=== PATIENT | male | born 1980 | race Caucasian/White ===

== ENCOUNTER → 2019-03-05 | Day surgery (SDC) | payer OTHER ==
[~2019-03-05] MED LIST: AMLO5TAB10 PO; HYDR12.58 PO; IV RINGERS,LACTATED 1000ML 1,000 ML IV SCH; LIDOCAINE 2% PF 5 ML VIAL. ONE; PROPOFOL 20 ML IV ONE; PROPOFOL 40 ML IV ONE
[2019-03-05 18:14] VITALS: BP 115/80
--- NOTE | 2019-03-07 17:06 | PATHOLOGY ---
[facility] Accession Number: [id number] . 01 Material submitted: . stomach - GASTRIC ANTRUM BIOPSY . 01 Clinical history: . Abdominal pain, blood in stool . 02 Diagnosis: Gastric biopsies, antrum: - Chronic gastritis, mild. LBQ 03/07/2019 1303 Local . 02 Comment: Sections of the gastric antral biopsy show congestion and mild chronic inflammation. A properly controlled immunoperoxidase stain for Helicobacter is obtained. No Helicobacter organisms are identified. There is no evidence of malignancy. (JPM/db; 03/07/2019) . Special stain performed: Immunoperoxidase stain for Helicobacter . 02 Electronically signed: . German Terrell MD, Pathologist NPI- [id number] . 01 Gross description: . Received in formalin labeled "Tacos, Nilesh, gastric antrum BX," and additionally labeled on the requisition as "rule out H. pylori," are 2 segments of pro soft tissue measuring 0.8 x 0.3 x 0.2 cm in aggregate dimensions and ranging from 0.3 to 0.5 cm in maximum dimension. The specimen is submitted entirely in cassette A1. (TSD; 03/06/2019) TOB/TOB 03/06/2019 1945 Local . 02 Pathologist provided ICD-10: K29.50 . 02 CPT . 090221, [id number] Specimen Comment: A courtesy copy of this report has been sent to [phone] Specimen Comment: [id number] Specimen Comment: Report sent to / DR ABDI Performed at: [address], [place], [place] [id number] MD Kike Parker MD Phone: [phone] Performed at: 02 [facility] [address] [place], [place] [id number] MD German Terrell MD Phone: [phone]
== END ==
LOC: ENDOS 15:33
PROVIDERS: ATTEND Internal Medicine Gastroenterology
DX: K92.1 Melena (principal); K29.50 Unspecified chronic gastritis without bleeding; K64.0 First degree hemorrhoids; K21.9 Gastro-esophageal reflux disease without esophagitis; I10 Essential (primary) hypertension; F15.90 Other stimulant use, unspecified, uncomplicated; Z88.0 Allergy status to penicillin; Z88.8 Allergy status to other drugs, medicaments and biological substances; Z72.89 Other problems related to lifestyle; Z98.52 Vasectomy status
CPT/HCPCS: 43239; 45378; 88305; 88342; J2001; J2704